=== PATIENT | male | born 1960 | race Two or more races ===

== ENCOUNTER 2018-03-01 11:14 | Day surgery (SDC) | payer OTHER ==
[~2018-03-01] VITALS: Ht 170.2 cm; Wt 90.3 kg
[2018-03-01] MEDS ORDERED: ASPIRIN (11:50)
[2018-03-01 11:55] VITALS: Ht 170.2 cm; Wt 90.3 kg
[2018-03-01 12:20] VITALS: BP 116/64; PULSE 76; RESP 20
[2018-03-01] MEDS ORDERED: LIDOCAINE 4% SOLUTION 50 ML BTL ONE (12:59)
[2018-03-01] MEDS ORDERED: FENTAnyl 50 MCG/ML VIAL ONE (13:38)
[2018-03-01] MEDS ORDERED: MIDAZOLAM 1 MG/ML 2 ML INJ ONE ×3 (13:38)
[2018-03-01 13:56] VITALS: BP 117/74; PULSE 72; RESP 18
== END 2018-03-01 14:56 | disposition home or self-care (01) ==
LOC: GIL 11:14
PROVIDERS: ATTEND Internal Medicine
DX: Z12.11 Encounter for screening for malignant neoplasm of colon (principal); K21.0 Gastro-esophageal reflux disease with esophagitis; K44.9 Diaphragmatic hernia without obstruction or gangrene; K57.30 Diverticulosis of large intestine without perforation or abscess without bleeding
CPT/HCPCS: 43239; 45378; 88305; 88312; 88313; J2250; J3010; Z7610